=== PATIENT | female | born 1990 | race Caucasian/White ===

== ENCOUNTER 2021-07-11 08:21 | Day surgery (SDC) | payer BC ==
[~2021-07-11] VITALS: Ht 162.6 cm; Wt 69.3 kg
[~2021-07-11 08:21] MED LIST: HYDACE5 PO; IBUP200; IBUP800 PO; META800 PO; ONDA4 PO; Percocet 5-3251 EACH PO; [UNRECOGNIZED DRUG - REMARK]
[2021-07-11] MEDS ORDERED: ERGO50000 (08:34)
[2021-07-11] MEDS ORDERED: FERROUS FUMARA324 MG PO (08:40)
[2021-07-11] MEDS ORDERED: ASCORBIC ACID500 MG PO (08:41)
[2021-07-11] MEDS ORDERED: PROG100 PO (08:41)
[2021-07-11] MEDS ORDERED: Vitamin B Comple1 EA PO (08:41)
--- NOTE | 2021-07-11 09:05 | NUR ---
History, Chart, Medications and Allergies reviewed before start of procedure. Lungs clear T/O to Auscultation. Patient confirms NPO status and agrees with scheduled surgery. Pre-Op teaching done. Pt verbalizes understanding. Patient States Post-Procedure ride home has been arranged. Patient reports completing Chlorhexadine shower X2 prior to admission to hospital.
[2021-07-11] MEDS ORDERED: ACET325 PO (14:18)
[2021-07-11] MEDS ORDERED: IBUP200 PO (14:25)
--- NOTE | 2021-07-11 18:19 | NUR ---
181 DISCHARGE INSTRUCTIONS REVIEWED WITH PATIENT AND PATIENT VERBALIZES UNDERSTANDING OF. PT BEV PO FOOD AND FLUIDS WITHOUT NAUSEA. PT REPORTS PAIN IS WELL CONTROLLED. UP IN ROOM TO BATHROOM TO VOID PINK TINGED URINE. PT WITH SCANT BLOODY VAGINAL DRAINAGE- PATIENT HAS NOT CHANGED CHETAN PAD SINCE ADMISSION
--- NOTE | 2021-07-11 18:32 | NUR ---
DISCHARGED TO HOME WITH
== END 2021-07-11 18:32 | disposition home or self-care (01) ==
LOC: ORSCMMR 08:21 → ORD 09:45 → ORSCMMR 09:45 → EDSTATUS 09:45 → SURS 13:48 → ORSCMMR 18:32
PROVIDERS: Obstetrics & Gynecology
PROC: 0UT74ZZ Resection of Bilateral Fallopian Tubes, Percutaneous Endoscopic Approach (ICD-10-PCS; principal; 2021-07-11 09:45)
PROC: 0UT94ZZ Resection of Uterus, Percutaneous Endoscopic Approach (ICD-10-PCS; principal; 2021-07-11 09:45)
PROC: 8E0W4CZ Robotic Assisted Procedure of Trunk Region, Percutaneous Endoscopic Approach (ICD-10-PCS; principal; 2021-07-11 09:45)
DX: N92.1 Excessive and frequent menstruation with irregular cycle (principal); N94.6 Dysmenorrhea, unspecified; Z98.891 History of uterine scar from previous surgery; N72 Inflammatory disease of cervix uteri; Z79.899 Other long term (current) drug therapy
CPT/HCPCS: 58571; S2900; 88307; A9270; J0690; J1100; J1885; J2250; J2405; J2704; J3010; J7120